=== PATIENT | male | born 1990 ===

== ENCOUNTER 2024-11-28 10:30 | Outpatient (CLI) | payer OTHER, SELFPAY ==
--- NOTE | ~2024-11-28 | MR_ITS ---
MRI of the left shoulder Technique: Axial proton-density fat-sat images, coronal proton density fat-sat and T2 fat-sat images, and sagittal T1-weighted and T2 fat-sat images were acquired. Clinical History: Pain Findings: AC joint intact. Coracoclavicular, coracoacromial, and coracohumeral ligaments are intact. Supraspinatus and infraspinatus tendons are intact, without partial or full-thickness tear. Subscapul merrill tendon intact with mild tendinosis. Tendon of the long head of the biceps is intact. No definite labral tear seen. Inferior glenohumeral ligament is intact. No degenerative change or effusion of the glenohumeral join t. No fluid distention of the subacromial/subdeltoid bursa. No muscle atrophy or edema. Impression: No significant abnormality seen. Reviewed, dictated and finalized at [facility]. Impression: No significant abnormality seen.
--- NOTE | ~2024-11-28 | MR_ITS ---
MRI of the left knee Clinical history: Anterior knee pain Technique: Coronal proton density and proton density-weighted images, sagittal proton-density and T2 fat-sat images, and axial proton-density fat-saturated images were acquired. Findings: Anterior and posterior cruciate ligaments are intact. Medial collateral ligament and the la teral collateral ligament, as are intact. Popliteus tendon is intact. Medial and lateral menisci are intact, without evidence of tear. 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 Osseous structures otherwise are unremarkable. Articular cartilage is well preserved throughout the knee. Extensor mechanism is intact. No joint effusion or Newton's cyst. 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 Reviewed, dictated and finalized at location . 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
== END 2024-11-28 10:31 | disposition home or self-care (01) ==
LOC: MICIMG 10:32
PROVIDERS: PCP Emergency Medicine; Visit Provider Emergency Medicine
DX: M17.12 Unilateral primary osteoarthritis, left knee (principal); R93.6 Abnormal findings on diagnostic imaging of limbs; Q74.1 Congenital malformation of knee
CPT/HCPCS: 73221; 73721